=== PATIENT | male | born 1990 | race African-American/Black ===

== ENCOUNTER 2018-09-01 10:32 | Emergency (ER) | payer MEDICAID ==
--- NOTE | 2018-09-01 10:58 | ER Report ---
History and Physical Time Seen By MD: 10:51 Hx. of Stated Complaint: ACID INDIGESTION THAT STARTED TODAY TODAY HPI/ROS CHIEF COMPLAINT: Burning in chest HISTORY OF PRESENT ILLNESS: This is a 20-year-old male who presents to emergency department for burning in his chest. 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 Patient states that he does drink large quantities of coffee, he also states that over the last couple of days he's had increased heart rate with a burning sensation in his chest. Denies shortness of breath or chest pain. No vomiting however he does have nausea, no rashes, no fevers no headaches or blurred vision, no diaphoresis. REVIEW OF SYSTEMS: Constitutional: No fever, no chills. Eyes: No discharge. ENT: No sore throat. Cardiovascular: As above. Respiratory: As above. Gastrointestinal: No abdominal pain, no vomiting. Genitourinary: No hematuria. Musculoskeletal: No back pain. Skin: No rashes. Neurological: No headache. Allergies: Coded Allergies: No Known Drug Allergies (Unverified , 09/01/18) Home Meds Active Scripts Pantoprazole Sodium (PANTOPRAZOLE SODIUM) 40 Mg Tablet.dr, 40 MG PO QDAY for 14 Days, #14 TAB.SR Prov:JANICE LATHAM CALENDER OPERATOR- 09/01/18 Past Medical/Surgical History The patient has a past medical surgical history of stress, sleep disturbances, depression. Reviewed Nurses Notes: Yes Hx Substance Use Disorder: No Hx Alcohol Use: No Constitutional Vital Sign - Last 24 Hours 09/01/18 09/01/18 09/01/18 09/01/18 10:32 10:42 11:00 11:02 Pulse ??? 131 Resp 13 B/P (MAP) 150/98 (115) 141/92 (108) Pulse Ox 95 09/01/18 09/01/18 09/01/18 09/01/18 11:30 11:32 12:00 12:02 Pulse 123 118 Resp 13 19 B/P (MAP) 154/92 (112) 145/86 (105) Pulse Ox 94 95 09/01/18 09/01/18 09/01/18 09/01/18 12:02 12:34 13:00 13:30 Pulse 118 Resp 19 B/P (MAP) 152/103 (119) 138/90 (106) 156/83 (107) Pulse Ox 95 09/01/18 09/01/18 09/01/18 13:35 14:00 14:05 Pulse 112 125 Resp 5 12 B/P (MAP) 133/89 (104) Pulse Ox 100 94 Physical Exam General Appearance: The patient is alert, has no immediate need for airway protection and no signs of toxicity. Eyes: Pupils equal and round no pallor or injection. ENT, Mouth: Mucous membranes are moist. Respiratory: There are no retractions, lungs are clear to auscultation. Cardiovascular: Regular rate and rhythm. Systolic murmur, no clicks or rubs. Gastrointestinal: Abdomen is soft and non tender, no masses, bowel sounds normal. Neurological: Alert and oriented 4. Moving all extremities. Following all commands. No focal neuro deficits. Skin: Warm and dry, no rashes. Musculoskeletal: Neck is supple non tender. Extremities are nontender, nonswollen and have full range of motion. DIFFERENTIAL DIAGNOSIS: After history and physical exam differential diagnosis was considered for chest pain including but not limited to myocardial ischemia, pericarditis pulmonary embolus, chest wall pain, pleural inflammation and pulmonary infectious causes. Medical Decision Making Data Points Result Diagram: 09/01/18 1046 09/01/18 1046 Laboratory Hematology Test 09/01/18 10:46 09/01/18 13:50 Red Blood Count 5.77 M/uL (4.00-5.60) Mean Corpuscular Volume 86.4 fL (80.0-96.0) Mean Corpuscular Hemoglobin 30.3 pg (26.0-33.0) Mean Corpuscular Hemoglobin Concent 35.0 g/dL (32.0-36.0) Red Cell Distribution Width 12.8 % (11.5-14.5) Mean Platelet Volume 8.5 fL (7.2-11.1) Neutrophils (%) (Auto) 67.3 % (39.4-72.5) Lymphocytes (%) (Auto) 21.6 % (17.6-49.6) Monocytes (%) (Auto) 10.2 % (4.1-12.4) Eosinophils (%) (Auto) 0.1 % (0.4-6.7) Basophils (%) (Auto) 0.8 % (0.3-1.4) Nucleated RBC Relative Count (auto) 0.1 /100WBC Neutrophils # (Auto) 4.4 K/uL (2.0-7.4) Lymphocytes # (Auto) 1.4 K/uL (1.3-3.6) Monocytes # (Auto) 0.7 K/uL (0.3-1.0) Eosinophils # (Auto) 0.0 K/uL (0.0-0.5) Basophils # (Auto) 0.1 K/uL (0.0-0.1) Nucleated RBC Absolute Count (auto) 0.00 K/uL D-Dimer Quantitative (PE/DVT) < 0.27 ug/ml (0-0.50) Sodium Level 139 mmol/L (137-145) Potassium Level 3.2 mmol/L (3.5-5.0) Chloride Level 100 mmol/L (98-107) Carbon Dioxide Level 28 mmol/L (22-30) Blood Urea Nitrogen 11 mg/dl (9-21) Creatinine 0.90 mg/dl (0.66-1.25) Glomerular Filtration Rate Calc > 60.0 Random Glucose 135 mg/dl (75-110) Calcium Level 9.7 mg/dl (8.4-10.2) Total Bilirubin 0.5 mg/dl (0.2-1.3) Aspartate Amino Transf (AST/SGOT) 26 U/L (0-35) Alanine Aminotransferase (ALT/SGPT) 22 U/L (0-56) Alkaline Phosphatase 68 U/L (0-126) Troponin I < 0.012 ng/ml Total Protein 8.5 g/dl (6.3-8.2) Albumin 5.0 g/dl (3.5-5.0) Urine Color Colorless Urine Clarity Clear Urine pH 8.0 pH (4.8-9.5) Urine Specific [place] 1.002 Urine Protein Negative mg/dL (NEGATIVE) Urine Glucose (UA) Negative mg/dL (NEGATIVE) Urine Ketones Negative mg/dL (NEGATIVE) Urine Blood Negative (NEGATIVE) Urine Nitrite Negative (NEGATIVE) Urine Bilirubin Negative (NEGATIVE) Urine Urobilinogen Negative mg/dL (0.2-1.9) Urine Leukocyte Esterase Negative (NEGATIVE) Urine RBC <1 /HPF (0-2/HPF) Urine WBC <1 /HPF (0-5/HPF) Urine Squamous Epithelial Cells None /LPF (</=FEW) Urine Bacteria Negative /HPF (NONE-FEW) Urine Mucus None /HPF (NONE-FEW) Chemistry Test 09/01/18 10:46 09/01/18 13:50 White Blood Count 6.6 k/uL (4.5-11.0) Red Blood Count 5.77 M/uL (4.00-5.60) Hemoglobin 17.4 g/dL (14.0-18.0) Hematocrit 49.8 % (42.0-52.0) Mean Corpuscular Volume 86.4 fL (80.0-96.0) Mean Corpuscular Hemoglobin 30.3 pg (26.0-33.0) Mean Corpuscular Hemoglobin Concent 35.0 g/dL (32.0-36.0) Red Cell Distribution Width 12.8 % (11.5-14.5) Platelet Count 330 K/uL (150-450) Mean Platelet Volume 8.5 fL (7.2-11.1) Neutrophils (%) (Auto) 67.3 % (39.4-72.5) Lymphocytes (%) (Auto) 21.6 % (17.6-49.6) Monocytes (%) (Auto) 10.2 % (4.1-12.4) Eosinophils (%) (Auto) 0.1 % (0.4-6.7) Basophils (%) (Auto) 0.8 % (0.3-1.4) Nucleated RBC Relative Count (auto) 0.1 /100WBC Neutrophils # (Auto) 4.4 K/uL (2.0-7.4) Lymphocytes # (Auto) 1.4 K/uL (1.3-3.6) Monocytes # (Auto) 0.7 K/uL (0.3-1.0) Eosinophils # (Auto) 0.0 K/uL (0.0-0.5) Basophils # (Auto) 0.1 K/uL (0.0-0.1) Nucleated RBC Absolute Count (auto) 0.00 K/uL D-Dimer Quantitative (PE/DVT) < 0.27 ug/ml (0-0.50) Glomerular Filtration Rate Calc > 60.0 Calcium Level 9.7 mg/dl (8.4-10.2) Total Bilirubin 0.5 mg/dl (0.2-1.3) Aspartate Amino Transf (AST/SGOT) 26 U/L (0-35) Alanine Aminotransferase (ALT/SGPT) 22 U/L (0-56) Alkaline Phosphatase 68 U/L (0-126) Troponin I < 0.012 ng/ml Total Protein 8.5 g/dl (6.3-8.2) Albumin 5.0 g/dl (3.5-5.0) Urine Color Colorless Urine Clarity Clear Urine pH 8.0 pH (4.8-9.5) Urine Specific [place] 1.002 Urine Protein Negative mg/dL (NEGATIVE) Urine Glucose (UA) Negative mg/dL (NEGATIVE) Urine Ketones Negative mg/dL (NEGATIVE) Urine Blood Negative (NEGATIVE) Urine Nitrite Negative (NEGATIVE) Urine Bilirubin Negative (NEGATIVE) Urine Urobilinogen Negative mg/dL (0.2-1.9) Urine Leukocyte Esterase Negative (NEGATIVE) Urine RBC <1 /HPF (0-2/HPF) Urine WBC <1 /HPF (0-5/HPF) Urine Squamous Epithelial Cells None /LPF (</=FEW) Urine Bacteria Negative /HPF (NONE-FEW) Urine Mucus None /HPF (NONE-FEW) Coagulation Test 09/01/18 10:46 D-Dimer Quantitative (PE/DVT) < 0.27 ug/ml Urinalysis Test 09/01/18 13:50 Urine Color Colorless Urine Clarity Clear Urine pH 8.0 pH (4.8-9.5) Urine Specific [place] 1.002 Urine Protein Negative mg/dL (NEGATIVE) Urine Glucose (UA) Negative mg/dL (NEGATIVE) Urine Ketones Negative mg/dL (NEGATIVE) Urine Blood Negative (NEGATIVE) Urine Nitrite Negative (NEGATIVE) Urine Bilirubin Negative (NEGATIVE) Urine Urobilinogen Negative mg/dL (0.2-1.9) Urine Leukocyte Esterase Negative (NEGATIVE) Urine RBC <1 /HPF (0-2/HPF) Urine WBC <1 /HPF (0-5/HPF) Urine Squamous Epithelial Cells None /LPF (</=FEW) Urine Bacteria Negative /HPF (NONE-FEW) Urine Mucus None /HPF (NONE-FEW) EKG/Imaging EKG Interpretation 12 lead EKG: Time of EKG 1049. Rhythm: Sinus tachycardia ventricular rate 134 bpm. [place]: normal QRS: normal ST segments: No ST depression or elevation identified. Imaging Location: [facility] Patient: Miguelangel Bourgeois : 1990 Visit/Account:[id number] Date of Sevice: 09/01/2018 2 VIEWS CHEST INDICATION: Chest Pain COMPARISON: None available FINDINGS: Heart size within normal limits. There is no focal infiltrate or lobar consolidation. There is no pneumothorax or pleural effusion. IMPRESSION: 1. No acute cardiopulmonary process. Report Dictated By: Arun Holman MD at 09/01/2018 11:33 AM Report E-Signed By: Arun Holman MD at 09/01/2018 11:34 AM WSN:[id number] ED Course/Re-evaluation Clinical Indication for ER IV: Hydration, IV Access ED Course The patient was admitted to room. History of physical were obtained. Differential diagnoses were considered. An IV was started. 1 L normal saline bolus was given 2, a CBC, CMP, troponin, d-dimer were obtained. Lab studies unremarkable, negative d-dimer, negative troponin. patient's pain has been ongoing for over 24 hours, did not repeat troponin. Patient's heart rate did respond to fluids and oxygen, heart rate came down to around 100 upon discharge. I did review the negative chest x-ray results along with the laboratory studies with the patient, EKG showing sinus tachycardia. I do feel that the patient's tachycardia and GI symptoms are secondary to large quantities of caffeine, stress and lack of sleep in addition to this I believe there is a mountain sickness components. I did recommend that when they return home to [place] that he follows up with his primary care provider, they discuss blood pressure, heart rate and sleep disturbances in addition to this I feel he needs some sort of therapy with a certified mental health professional for his stress. Patient expressed understanding, was agreeable with this plan care and discharged home. I also checked patient to stop drinking coffee increase his water intake distending to a lower elevation as soon as possible. Decision to Disposition Date: Sep 01, 2018 Decision to Disposition Time: 14:15 Depart Departure Latest Vital Signs Vital Signs Date Time Temp Pulse Resp B/P (MAP) Pulse Ox O2 Delivery O2 Flow Rate FiO2 09/01/18 14:05 125 12 94 09/01/18 14:00 133/89 (104) Impression: Primary Impression: Tachycardia Additional Impressions: Elevated blood pressure reading Acid reflux Altitude illness Condition: Improved Disposition: HOME OR SELF-CARE New Scripts Pantoprazole Sodium (PANTOPRAZOLE SODIUM) 40 Mg Tablet. 40 MG PO QDAY for 14 Days, #14 TAB.SR Prov: JANICE LATHAMP-BC 09/01/18 Patient Instructions: How to Take a Blood Pressure (ED), Mountain Sickness (ED), Supraventricular Tachycardia (GEN) Additional Instructions: Please reduce your caffiene intake and increase your water consumption. Take one 40mg protonix daily for the next 30 days. Please follow up with your doctor when you get home, discuss mental health and wellness, as well as your blood pressure and heart rate. I do believe there is an element of altitude sickness that is contributing to your symptoms too, we are at 7,200 feet. 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 Eat a well rounded, low sodium diet. If you need to take something to help you sleep, start with 25-50mg of Benadryl, this can be purchased at any pharmacy or drug store. Problem Qualifiers Additional Impressions: Acid reflux Esophagitis presence: esophagitis presence not specified Qualified Codes: K21.9 - Gastro-esophageal reflux disease without esophagitis Altitude illness Encounter type: initial encounter Qualified Codes: T70.29XA - Other effects of high altitude, initial encounter JANICE LATHAM CALENDER OPERATOR-BC Sep 01, 2018 10:57
[2018-09-01] MEDS ORDERED: NS(*) 0.9% 1000 ML BAG 1,000 ML IV ONE ×2 (11:13→11:50)
--- NOTE | 2018-09-01 11:38 | RADIOLOGY IMAGING REPORT ---
FACILITY: [facility] [place] PATIENT NAME: Miguelangel Bourgeois : 1990 MR: [id number] V: [id number] EXAM DATE: ORDERING PHYSICIAN: JANICE LATHAM TECHNOLOGIST: Location: [facility] Patient: Miguelangel Bourgeois : 1990 Visit/Account:[id number] Date of Sevice: 09/01/2018 2 VIEWS CHEST INDICATION: Chest Pain COMPARISON: None available FINDINGS: Heart size within normal limits. There is no focal infiltrate or lobar consolidation. There is no pneumothorax or pleural effusion. IMPRESSION: 1. No acute cardiopulmonary process. Report Dictated By: Arun Holman MD at 09/01/2018 11:33 AM Report E-Signed By: Arun Holman MD at 09/01/2018 11:34 AM WSN:[id number]
[2018-09-01 11:42] LABS: PLATELET COUNT, AUTOMATED 330 K/uL (150-450)
[2018-09-01] MEDS ORDERED: MAG HYD/AL HYD/SIMETH 30ML UDC PO ONE (12:25)
[2018-09-01] MEDS ORDERED: LIDOCAINE 2% VISC SLN 15ML UDC PO ONE (12:25)
--- NOTE | 2018-09-01 12:34 | EKG ---
FACILITY: [facility] [place] PATIENT NAME: HARMEET JORGE : [id number] MR: [id number] V: [id number] EXAM DATE: ORDERING PHYSICIAN: JANICE LATHAM TECHNOLOGIST: Test Reason : Rapid heartrate Blood Pressure : / mmHG Vent. Rate : 134 BPM Atrial Rate : 134 BPM P-R Int : 158 ms QRS Dur : 070 ms QT Int : 292 ms P-R-T Axes : 077 089 050 degrees QTc Int : 436 ms Sinus tachycardia Biatrial enlargement No ST-T abnormalities No previous ECGs available Confirmed by KAT SMITH ([id number]) on 09/01/2018 12:37:26 PM Referred By: Confirmed By:KAT SMITH
[2018-09-01 14:00] VITALS: BP 133/89
[2018-09-01] MEDS ORDERED: PANT40TA65 PO (14:31)
== END 2018-09-01 14:33 | disposition home or self-care (01) ==
LOC: ER 11:03
DX: R00.0 Tachycardia, unspecified (principal); R03.0 Elevated blood-pressure reading, without diagnosis of hypertension; K21.9 Gastro-esophageal reflux disease without esophagitis; T70.29XA Other effects of high altitude, initial encounter
CPT/HCPCS: 71046; 81001; 84484; 85025; 85379; 93005; 96360; 96361; 99284; J7030; 82040; 82247; 82310; 82374; 82435; 82565; 82947; 84075; 84132; 84155; 84295; 84450; 84460; 84520